=== PATIENT | female | born 1970 | race Caucasian/White ===

== ENCOUNTER 2016-09-04 18:09 | Emergency (ER) | payer OTHER ==
[~2016-09-04] VITALS: Ht 152.4 cm; Wt 62.0 kg
[~2016-09-04 18:09] MED LIST: BACTDS PO; CEPH-443 PO; CEPH500C PO; HYDR-3498 PO; IBUP-1542 PO; LANT3I SC; METF1000 PO; OMEP20CA9 PO; RANI150T9 PO
[2016-09-04 18:12] VITALS: Ht 152.4 cm; Wt 62.0 kg
[2016-09-04] MEDS ORDERED: KETOROLAC 30 MG INJ IM STA (20:34)
--- NOTE | 2016-09-04 21:25 | RADRPT ---
PROCEDURE: XR Femur. CLINICAL INDICATION: Worsening left thigh pain TECHNIQUE: AP and cross-table lateral views of the left femur were performed, a total of 4 images sent to the PACS for review. COMPARISON: None. FINDINGS: There is normal mineralization and alignment. No fracture or osseous lesion is identified. There are normal joints without evidence of arthritis or effusion. No lytic or blastic lesions are evident. T he soft tissues are unremarkable. RPTAT:HJJR IMPRESSION: Normal left femur series. Physician Ephraim Date Time Electronically viewed and signed by Physician Ephraim on 09/04/2016 21:24 JR/
[2016-09-04] MEDS ORDERED: HYDR-906 PO (22:16)
[2016-09-04] MEDS ORDERED: IBUP-1542 PO (22:16)
[2016-09-04 22:29] VITALS: BP 120/77; PULSE 83; RESP 20; TEMP 98
--- NOTE | 2016-09-05 11:39 | ERD ---
ER Documentation Chief Complaint Date/Time DATE: 09/05/16 TIME: 11:36 Chief Complaint pt bib self with c/o left leg pain x 6 months, worse HPI This is a 45-year-old female presenting to emergency department for evaluation of left leg pain 8 months. Patient states this is an ongoing problem that has gotten worse this week. Patient has a localized area of tenderness to lateral aspect of upper left leg. Denies any loss of sensation, numbness or tingling. No skin changes, laceration or ecchymosis. Patient states she has been to her primary care provider 3 times for this and has tried several different medications for pain. Denies hip or foot pain. No pelvic or abdominal pain. Patient states pain is localized and at times does radiate down left leg. No swelling. No fever chills. No recent surgery or trauma. Patient states pain is intermittent and is worse with activity. ROS All systems reviewed and are negative except as per history of present illness. Medications Home Meds Active Scripts Hydrocodone/Acetaminophen ([place] 5-325 Tablet) 1 Each Tablet, 1 TAB PO Q6H Y for PAIN, #7 TAB Prov:ARNOL LEWIS NP 09/04/16 Ibuprofen* (Motrin*) 600 Mg Tab, 600 MG PO Q6, #15 TAB Prov:ARNOL LEWIS NP 09/04/16 Ranitidine Hcl* (Zantac*) 150 Mg Tablet, 150 MG PO BID Y for EPIGASTRIC PAIN, # 30 TAB Prov:KATHIE TALAVERA PA-C 01/09/16 Omeprazole* (Prilosec*) 20 Mg Capsule.dr, 20 MG PO DAILY, #30 CAP Prov:KATHIE TALAVERA PA-C 01/09/16 Cephalexin* (Keflex*) 500 Mg Capsule, 500 MG PO QID for 7 Days, CAP Prov:ADILSON CANTU PA-C 08/19/15 Sulfamethoxazole-Trimethoprim* (Bactrim* DS) 800-160 Mg Tab, 1 TAB PO BID for 7 Days, TAB Prov:ADILSON CANTU PA-C 08/19/15 Sulfamethoxazole-Trimethoprim* (Bactrim* DS) 800-160 Mg Tab, 1 TAB PO BID for 10 Days, TAB Prov:KATHIE TALAVERA PA-C 03/27/15 Ibuprofen* (Motrin*) 600 Mg Tab, 600 MG PO Q6, #30 TAB Prov:ADILSON CANTU PA-C 03/25/15 Cephalexin* (Keflex*) 500 Mg Capsule, 500 MG PO QID for 7 Days, CAP Prov:ADILSON CANTU PA-C 03/25/15 Sulfamethoxazole-Trimethoprim* (Bactrim* DS) 800-160 Mg Tab, 1 TAB PO BID for 7 Days, TAB Prov:ADILSON CANTU PA-C 03/25/15 Cephalexin* (Cephalexin*) 500 Mg Capsule, 500 MG PO QID for 7 Days, CAP Prov:SADEORAAPRIL 02/20/15 Sulfamethoxazole-Trimethoprim* (Bactrim* DS) 800-160 Mg Tab, 1 TAB PO BID for 7 Days, TAB Prov:WALLACEEORAAPRIL 02/20/15 Hydrocodone Bit-Acetaminophen* ([place]*) 5-325 Mg Tab, 1 TAB PO Q6 Y for PAIN, # 14 TAB Prov:RADHA TALLEY PA-C 02/04/15 Ibuprofen* (Motrin*) 600 Mg Tab, 600 MG PO Q6, #30 TAB Prov:RADHA TALLEY PA-C 02/04/15 Cephalexin* (Keflex*) 500 Mg Capsule, 500 MG PO QID for 7 Days, CAP Prov:RADHA TALLEY PA-C 02/04/15 Sulfamethoxazole-Trimethoprim* (Bactrim* DS) 800-160 Mg Tab, 1 TAB PO BID for 7 Days, TAB Prov:RADHA TALLEY PA-C 02/04/15 Reported Medications Metformin Hcl* (Metformin Hcl*) 1,000 Mg Tablet, 1000 MG PO BID, TAB 02/06/15 Insulin Glargine* (Lantus*) 100 Unit/Ml Soln, 40 UNIT SC DAILY, EA 02/06/15 Allergies Allergies: Coded Allergies: No Known Allergy (Unverified , 01/09/16) PMhx/Soc History of Surgery: Yes (RT OVARY REMOVAL) Anesthesia Reaction: No Hx Neurological Disorder: No Hx Respiratory Disorders: No Hx Cardiac Disorders: No Hx Psychiatric Problems: No Hx Miscellaneous Medical Probl: Yes (DM) Hx Alcohol Use: No Hx Substance Use: No Hx Tobacco Use: No Smoking Status: Never smoker Physical Exam Vitals Vital Signs Date Time Temp Pulse Resp B/P Pulse Ox O2 Delivery O2 Flow Rate FiO2 09/04/16 22:29 98.0 83 20 120/77 99 Room Air 09/04/16 18:12 98.3 87 16 151/83 97 Physical Exam Const: No acute distress, alert Head: Atraumatic Eyes: Normal Conjunctiva ENT: Normal External Ears, Nose and Mouth. Neck: Full range of motion..~ No meningismus. Resp: Clear to auscultation bilaterally Cardio: Regular rate and rhythm, no murmurs Abd: Soft, non tender, non distended. Normal bowel sounds Skin: No petechiae or rashes Back: No midline or flank tenderness Ext: No cyanosis, or edema. Straight leg raise does not elicit pain. Pedal pulses are palpable Neur: Awake and alert Psych: Normal Mood and Affect Results 24 hrs Current Medications Medications (Trade) Dose Ordered Sig/Jessica Route PRN Reason Start Time Stop Time Status Last Admin Dose Admin Ketorolac Tromethamine (Toradol) 30 mg ONCE STAT IM 09/04/16 20:34 09/04/16 20:36 DC 09/04/16 20:45 Procedures/MDM ED COURSE: The patient was stable throughout ED course. I kept the patient and/or family informed of laboratory and diagnostic imaging results throughout the ED course. Toradol given Imaging X-ray femur Patient: ANTIONE POWELL : 1970 Age: 45 Sex: F MR #: [id number] DOS: 09/04/162033 Ordering MD: ARNOL LEWIS NP Location: [facility] Room/Bed: PROCEDURE: XR Femur. CLINICAL INDICATION: Worsening left thigh pain TECHNIQUE: AP and cross-table lateral views of the left femur were performed, a total of 4 images sent to the PACS for review. COMPARISON: None. FINDINGS: There is normal mineralization and alignment. No fracture or osseous lesion is identified. There are normal joints without evidence of arthritis or effusion. No lytic or blastic lesions are evident. The soft tissues are unremarkable. RPTAT:JENNIFERJR IMPRESSION: Normal left femur series. MDM: This is a 45-year-old female presents emergency department for left leg pain 8 months. He states pain is worse in today. Pain is localized to lateral aspect of the upper left leg. Toradol given on the ED and patient states pain has improved significantly. X-ray left femur reviewed by radiologist as normal. Patient states she has been seen by her primary care provider 3 times in the last 8 months for this however continues to have pain. Patient remains hemodynamically stable. No fevers or chills. No skin changes or laceration. Remains neurovascularly intact. No loss of sensation, numbness or tingling. Low suspicion for acute dislocation or fracture, compartment syndrome or cellulitis. Patient diagnosis is left leg pain not otherwise specified. Patient is appropriate for outpatient management will be given prescription for ibuprofen and [place] and instructed to follow-up with primary care provider in the next 24-48 hours for reassessment and additional management. Patient may need referral to orthopedic physician. Resources provided. Work note provided. Return to ED for any high fever, chest pain, difficulty breathing, shortness breath, wheezing, vomiting, diarrhea, abdominal pain or any new or worsening symptoms. Patient verbalizes understanding. All questions answered at discharge. Departure Diagnosis: Primary Impression: Pain of left leg Condition: Stable Patient Instructions: Possible Causes of Low Back or Leg Pain Referrals: [facility] 7 a.m.- 11 p.m. Every Day of the Week NO APPOINTMENT OR AUTHORIZATION NEEDED Additional Instructions: Call your primary care doctor TOMORROW for an appointment during the next 2-3 days.See the doctor sooner or return here if your condition worsens before your appointment time. Return to ED for any high fever, chest pain, difficulty breathing, shortness breath, wheezing, vomiting, diarrhea, abdominal pain or any new or worsening symptoms. ARNOL LEWIS NP Sep 05, 2016 11:39
== END 2016-09-04 22:31 | disposition home or self-care (01) ==
LOC: FTE 18:09
DX: M79.605 Pain in left leg (principal); E11.9 Type 2 diabetes mellitus without complications; Z79.4 Long term (current) use of insulin; Z79.84 Long term (current) use of oral hypoglycemic drugs
CPT/HCPCS: 73550; 96372; J1885; Z7502

== ENCOUNTER 2016-10-26 10:28 | Emergency (ER) | payer SELFPAY ==
[~2016-10-26] VITALS: Ht 152.4 cm; Wt 64.0 kg
[~2016-10-26 10:28] MED LIST changes: +HYDR-906 PO
[2016-10-26 10:32] VITALS: Ht 152.4 cm; Wt 64.0 kg
[2016-10-26] MEDS ORDERED: IBUPROFEN 600 MG TAB PO ONE (11:30)
[2016-10-26 11:48] LABS: URINE BLOOD (Dip) POC Negative (NEGATIVE)
--- NOTE | 2016-10-26 12:16 | RADRPT ---
PROCEDURE: XR Cervical Spine. CLINICAL INDICATION: Neck pain TECHNIQUE: Three views of the cervical spine were performed. The images were reviewed on a PACS [employer]. COMPARISON: None. FINDINGS: The normal cervical lordosis is well maintained. Alignment is intact. There is no evidence of acut e fracture or dislocation. Vertebral body heights are well maintained. Intervertebral disc heights are well maintained. The odontoid is well centered within the lateral masses of C1. The preverteb ral soft tissues are within normal limits. IMPRESSION: 1. Unremarkable cervical spine x-rays series. RPTAT: KK .Zana Mcnamara MD, MD Date Time Electronically viewed and signed by .Zana Mcnamara MD, MD on 10/26/2016 12:15 .B/
[2016-10-26] MEDS ORDERED: IBUP-1542 PO (12:46)
[2016-10-26] MEDS ORDERED: TRAM50TA2 PO (12:46)
--- NOTE | 2016-10-26 12:51 | ERD ---
ER Documentation Chief Complaint Date/Time DATE: 10/26/16 TIME: 12:49 Chief Complaint LEFT SHOULDER PAIN SINCE LAST NIGHT, HOT/COLD X5 DAYS HPI This 45-year-old female complains of left trapezius and left arm pain since last night. It started while she is sleeping. Denies any fevers although she feels flushed and hot intermittent episodes of feeling cold. She denies any vomiting, visual changes, chest pain, shortness of breath. ROS All systems reviewed and are negative except as per history of present illness. Medications Home Meds Active Scripts Tramadol HCl (Tramadol HCl) 50 Mg Tablet, 50 MG PO Q4 Y for PAIN, #15 TAB Prov:TONIO GALAN MD 10/26/16 Ibuprofen* (Motrin*) 600 Mg Tab, 600 MG PO Q6, #20 TAB Prov:TONIO GALAN MD 10/26/16 Hydrocodone/Acetaminophen ([place] 5-325 Tablet) 1 Each Tablet, 1 TAB PO Q6H Y for PAIN, #7 TAB Prov:ARNOL LEWIS NP 09/04/16 Ibuprofen* (Motrin*) 600 Mg Tab, 600 MG PO Q6, #15 TAB Prov:ARNOL LEWIS NP 09/04/16 Ranitidine Hcl* (Zantac*) 150 Mg Tablet, 150 MG PO BID Y for EPIGASTRIC PAIN, # 30 TAB Prov:KATHIE TALAVERA PA-C 01/09/16 Omeprazole* (Prilosec*) 20 Mg Capsule.dr, 20 MG PO DAILY, #30 CAP Prov:KATHIE TALAVERA PA-C 01/09/16 Cephalexin* (Keflex*) 500 Mg Capsule, 500 MG PO QID for 7 Days, CAP Prov:ADILSON CANTU PA-C 08/19/15 Sulfamethoxazole-Trimethoprim* (Bactrim* DS) 800-160 Mg Tab, 1 TAB PO BID for 7 Days, TAB Prov:ADILSON CANTU PA-C 08/19/15 Sulfamethoxazole-Trimethoprim* (Bactrim* DS) 800-160 Mg Tab, 1 TAB PO BID for 10 Days, TAB Prov:KATHIE TALAVERA PA-C 03/27/15 Ibuprofen* (Motrin*) 600 Mg Tab, 600 MG PO Q6, #30 TAB Prov:ADILSON CANTU PA-C 03/25/15 Cephalexin* (Keflex*) 500 Mg Capsule, 500 MG PO QID for 7 Days, CAP Prov:ADILSON CANTU PA-C 03/25/15 Sulfamethoxazole-Trimethoprim* (Bactrim* DS) 800-160 Mg Tab, 1 TAB PO BID for 7 Days, TAB Prov:ADILSON CANTU PA-C 03/25/15 Cephalexin* (Cephalexin*) 500 Mg Capsule, 500 MG PO QID for 7 Days, CAP Prov:APRIL MARIE 02/20/15 Sulfamethoxazole-Trimethoprim* (Bactrim* DS) 800-160 Mg Tab, 1 TAB PO BID for 7 Days, TAB Prov:APRIL MARIE 02/20/15 Hydrocodone Bit-Acetaminophen* ([place]*) 5-325 Mg Tab, 1 TAB PO Q6 Y for PAIN, # 14 TAB Prov:RADHA TALLEY PA-C 02/04/15 Ibuprofen* (Motrin*) 600 Mg Tab, 600 MG PO Q6, #30 TAB Prov:RADHA TALLEY PA-C 02/04/15 Cephalexin* (Keflex*) 500 Mg Capsule, 500 MG PO QID for 7 Days, CAP Prov:RADHA TALLEY PA-C 02/04/15 Sulfamethoxazole-Trimethoprim* (Bactrim* DS) 800-160 Mg Tab, 1 TAB PO BID for 7 Days, TAB Prov:RADHA TALLEY PA-C 02/04/15 Reported Medications Metformin Hcl* (Metformin Hcl*) 1,000 Mg Tablet, 1000 MG PO BID, TAB 02/06/15 Insulin Glargine* (Lantus*) 100 Unit/Ml Soln, 40 UNIT SC DAILY, EA 02/06/15 Allergies Allergies: Coded Allergies: No Known Allergy (Unverified , 01/09/16) PMhx/Soc History of Surgery: Yes (RT OVARY REMOVAL) Anesthesia Reaction: No Hx Neurological Disorder: No Hx Respiratory Disorders: No Hx Cardiac Disorders: No Hx Psychiatric Problems: No Hx Miscellaneous Medical Probl: Yes (DM) Hx Alcohol Use: No Hx Substance Use: No Hx Tobacco Use: No Smoking Status: Never smoker Physical Exam Vitals Vital Signs Date Time Temp Pulse Resp B/P Pulse Ox O2 Delivery O2 Flow Rate FiO2 10/26/16 10:32 96.9 95 20 157/94 99 Physical Exam Const: [] Alert, [id number] per Head: Atraumatic Eyes: Normal Conjunctiva ENT: Normal External Ears, Nose and Mouth. Neck: Full range of motion..~ No meningismus. Resp: Clear to auscultation bilaterally Cardio: Regular rate and rhythm, no murmurs Abd: Soft, non tender, non distended. Normal bowel sounds Skin: No petechiae or rashes Back: No midline or flank tenderness Ext: No cyanosis, or edema. Tenderness in the left trapezius pain rating to the left upper extremity. Pulses are 2+ and there is no restricted range of motion weakness. There is mild cervical paraspinous muscle tenderness Neur: Awake and alert Psych: Normal Mood and Affect Results 24 hrs Laboratory Tests Test 10/26/16 11:47 Bedside Urine pH (LAB) 5.5 Bedside Urine Protein (LAB) Negative Bedside Urine Glucose (UA) 0.50% Bedside Urine Ketones (LAB) 1+ Bedside Urine Blood Negative Bedside Urine Nitrite (LAB) Negative Bedside Urine Leukocyte Esterase (L Negative Current Medications Medications (Trade) Dose Ordered Sig/Jessica Route PRN Reason Start Time Stop Time Status Last Admin Dose Admin Ibuprofen (Motrin) 600 mg ONCE ONCE PO 10/26/16 11:30 10/26/16 11:31 DC 10/26/16 11:35 Procedures/MDM EKG: Rate/Rhythm: [Normal Sinus Rhythm] rate was 86 QRS, ST, T-waves: [No changes consistent w/ acute ischemia] Impression: [No evidence of ischemia or arrhythmia] X-ray C spine 3V Interpreted by me: Bones: [No fracture] Joints: No dislocation Foreign body: None. Impression-normal cervical spine next Patient was given ibuprofen 600 mg by mouth. Urine shows no leukocytes, nitrites or glucose. Patient presents with left upper extremity pain which started while sleeping suggestive of cervical radicular pain. She will be treated with ibuprofen and tramadol and further observation. The patient was stable with no new complaints during the ER course. Clinically, there is no current evidence to suggest meningitis, sepsis, acute abdomen, pneumonia, acute coronary syndrome, pulmonary embolism, or any other emergent condition appearing to require further evaluation or hospitalization. The patient should certainly return for any new or worsening symptoms per the aftercare instructions. They should otherwise follow-up with her primary care doctor for reevaluation this week. Departure Diagnosis: Primary Impression: Arm pain, left Condition: Stable Patient Instructions: Radiculopathy, Cervical [facility] Usted se james hecho un examen mdico de control que le indica que no est en jorden condicin que requiera tratamiento urgente en el Departamento de Emergencia. Un estudio ms profundo y el tratamiento de young condicin pueden esperar sin ningn riesgo hasta que usted sea atendida/o en el consultorio de young mdico o jorden cl derrick. Es responsabilidad suya arreglar jorden diana para el seguimiento del yosi. MANEJO DE CONDICIONES NO URGENTES EN EL FUTURO 1) Si usted tiene un mdico de atencin primaria: Usted debera llamar a young mdico de atencin primaria antes de venir al departamento de emergencia. Despus de las horas de consultorio, young doctor o young asociado/a est disponible por telfono. El mdico o enfermero de grant en el servicio telefnico puede asesorarle por deepak medio para atender el problema, o yosi contrario se puede programar jorden diana. 2) Si usted no tiene un mdico de atencin primaria: Llame al mdico o clnica de referencia que aparece abajo rex las horas de consultorio para hacer jorden diana para que le vean. CLINICAS: [facility] [phone] [facility] [phone] [facility] [phone] [facility]. [place] [id number] [phone] [facility]. [place] [phone] [facility]. [phone] [facility] TUCKER HERNANDES Additional Instructions: Examines normal hoy. Cheque otro vez con oyung doctor primario en el proximo parks or regresa para mas o nueva simptomas. TONIO GALAN MD Oct 26, 2016 12:51
== END 2016-10-26 13:00 | disposition home or self-care (01) ==
LOC: FTE 10:28
DX: M79.602 Pain in left arm (principal); E11.9 Type 2 diabetes mellitus without complications; Z79.4 Long term (current) use of insulin; Z79.84 Long term (current) use of oral hypoglycemic drugs
CPT/HCPCS: 72040; 81003; 93005

== ENCOUNTER 2016-11-28 10:48 | Emergency (ER) | payer SELFPAY ==
[~2016-11-28] VITALS: Ht 160 cm; Wt 62.0 kg
[~2016-11-28 10:48] MED LIST changes: +TRAM50TA2 PO
[2016-11-28 10:50] VITALS: Ht 160 cm; Wt 62.0 kg
== END 2016-11-28 12:26 | disposition left against medical advice (07) ==
LOC: FTE 10:48
DX: Z53.21 Procedure and treatment not carried out due to patient leaving prior to being seen by health care provider (principal)

== ENCOUNTER 2018-03-19 16:41 | Emergency (ER) | END 2018-03-19 18:53 | disposition home or self-care (01) ==